=== PATIENT | male | born 1975 | race Caucasian/White ===

== ENCOUNTER 2021-03-01 12:37 | Observation (INO) | payer OTHER ==
[2021-03-01 13:39] VITALS: BMI 31.5
[2021-03-01 14:23] LABS: BASO % 0.7 % (0-2.0); EOS % 1.7 % (0-4.5); HEMATOCRIT 39.8 % (35.4-49); HEMOGLOBIN 13.8 GM/dL (11.7-16.9); LYMPH % 25.6 % (8-40); MCH 29.5 pg (25.7-33.7); MCHC 34.6 g/dl (32.0-35.9); MEAN CELL VOLUME 85.2 fl (80-96); MEAN PLT VOLUME 7.9 fl (7.5-11.1); MONO % 9.1 % (3.8-10.2); NEUT % 62.9 % (42.8-82.8); PLATELET COUNT 329 K/MM3 (134-434); RBC 4.67 M/mm3 (4.00-5.60); RDW 13.9 % (11.9-15.9); WHITE BLOOD COUNT 5.8 K/mm3 (4.0-10.0)
[2021-03-01 14:45] LABS: ALBUMIN 3.8 g/dl (3.4-5.0); BLOOD UREA NITROGEN 13.8 mg/dL (7-18); CALCIUM 9.3 mg/dL (8.5-10.1)
[2021-03-01 14:48] LABS: CREATININE 0.8 mg/dL (0.55-1.3)
[2021-03-01 14:50] LABS: BILIRUBIN,TOTAL 0.4 mg/dL (0.2-1)
[2021-03-01 19:57] LABS: PHENCYCLIDINE,URINE NEGATIVE ng/ml (CUTOFF=25)
[2021-03-01 19:58] LABS: COCAINE, UR NEGATIVE ng/ml (CUTOFF=300); METHADONE, UR NEGATIVE ng/ml (CUTOFF=300); URINE AMPHETAMINES NEGATIVE ng/ml (CUTOFF=500); URINE BARBITURATES NEGATIVE ng/ml (CUTOFF=200)
[2021-03-01 20:00] LABS: OPIATES, URI NEGATIVE ng/ml (CUTOFF=300); URINE BENZODIAZEPINES NEGATIVE ng/ml (CUTOFF=200)
[2021-03-02 07:29] LABS: HEMATOCRIT 37.4 % (35.4-49); HEMOGLOBIN 13.1 GM/dL (11.7-16.9); MCH 29.8 pg (25.7-33.7); MEAN CELL VOLUME 85.3 fl (80-96); PLATELET COUNT 278 K/MM3 (134-434); RBC 4.38 M/mm3 (4.00-5.60); WHITE BLOOD COUNT 6.2 K/mm3 (4.0-10.0)
[2021-03-02 08:03] LABS: CALCIUM 8.4 mg/dL (8.5-10.1); MAGNESIUM 2.3 mg/dL (1.8-2.4)
[2021-03-02 08:07] LABS: CREATININE 0.8 mg/dL (0.55-1.3); PHOSPHOROUS 2.8 mg/dL (2.5-4.9)
[2021-03-02] MEDS ORDERED: PT OWN MED DRAWER 7, Y5N ONE (20:55)
[2021-03-03 14:52] VITALS: BP 109/58; PULSE 58; TEMP 98.3
== END 2021-03-03 15:55 | disposition home or self-care (01) ==
LOC: JER 12:37 → INTOOBSV 15:08 → JERBED 15:08 → J4S 21:28
PROVIDERS: ATTEND Internal Medicine
DX: G25.9 Extrapyramidal and movement disorder, unspecified (principal); R53.1 Weakness; R29.6 Repeated falls; E11.9 Type 2 diabetes mellitus without complications; Z79.84 Long term (current) use of oral hypoglycemic drugs; Z87.891 Personal history of nicotine dependence; Z86.69 Personal history of other diseases of the nervous system and sense organs
CPT/HCPCS: 36415; 70450-TC; 70552-TC; 80048; 80053; 80061; 80307; 82550; 82607; 82962; 83036; 83721; 83735; 84100; 84439; 84443; 84481; 85025; 85027; 86618; 86664; 86780; 93005; 93010; 97116-GP; 97161-GP; 99285-25; C9803; G0378; U0003; U0005